=== PATIENT | female | born 1955 | race Caucasian/White ===

== ENCOUNTER 2018-11-16 15:58 | Emergency (ER) | payer OTHER, BC ==
[~2018-11-16] VITALS: Ht 157.5 cm; Wt 49.9 kg
--- NOTE | 2018-11-16 16:00 | NUR ---
PLACED IN [facility],
[2018-11-16 16:03] VITALS: BP_SYST 112
[2018-11-16] MEDS ORDERED: DIPH-TET-PERTUS Vaccine 0.5 ML VIAL (ADACEL) IM ONE (16:15)
[2018-11-16] MEDS ORDERED: LIDOCAINE 1% 10 MG/ML, 20 ML MDV IJ ONE (16:15)
--- NOTE | 2018-11-16 16:25 | NUR ---
DR. BARBOUR EXAMINING PT
--- NOTE | 2018-11-16 17:02 | NUR ---
DR. BARBOUR AT BEDSIDE SUTURING WOUND
[2018-11-16] MEDS ORDERED: BACITRACIN 1 GM OINT TP ONE (17:25)
[2018-11-16 17:45] VITALS: BP_SYST 125
--- NOTE | 2018-11-16 17:45 | NUR ---
[facility] staff here and Patient given written and verbal discharge instructions and verbalizes understanding. ER MD discussed with patient the results and treatment provided. Patient in stable condition. ID arm band removed. Transported back via Ambulance Rx of none given. Patient educated on pain management and to follow up with PMD. Pain Scale 0/10 Opportunity for questions provided and answered. Medication side effect fact sheet provided.
== END 2018-11-16 17:45 | disposition home or self-care (01) ==
LOC: SED 15:58
DX: S11.91XA Laceration without foreign body of unspecified part of neck, initial encounter (principal); Y28.1XXA Contact with knife, undetermined intent, initial encounter; Y93.89 Activity, other specified; Y92.89 Other specified places as the place of occurrence of the external cause; Y99.8 Other external cause status
CPT/HCPCS: 12002; 90471; 90715; 99284; J2001